=== PATIENT | male | born 1960 | race Caucasian/White ===

== ENCOUNTER → 2022-09-27 | Outpatient (CLI) | payer MEDICARE ==
[2022-09-27 16:23] LABS: CREATININE 1.1 mg/dL (0.5-1.5); POTASSIUM 4.3 mmol/L (3.5-5.1)
== END | disposition home or self-care (01) ==
LOC: LAB 15:29
PROVIDERS: ATTEND Student in an Organized Health Care Education/Training Program
DX: I45.10 Unspecified right bundle-branch block (principal); I95.1 Orthostatic hypotension; E78.5 Hyperlipidemia, unspecified
CPT/HCPCS: 36415; 80048